=== PATIENT | male | born 1990 | race African-American/Black ===

== ENCOUNTER 2017-05-28 14:50 | Emergency (ER) | payer SELFPAY ==
[~2017-05-28] VITALS: Ht 175.3 cm; Wt 180.0 kg
[2017-05-28 15:20] VITALS: BP 161/82
== END 2017-05-28 19:15 | disposition home or self-care (01) ==
LOC: ER 15:54
DX: H66.92 Otitis media, unspecified, left ear (principal); H60.92 Unspecified otitis externa, left ear; J45.909 Unspecified asthma, uncomplicated; E66.01 Morbid (severe) obesity due to excess calories; Z68.43 Body mass index [BMI] 50.0-59.9, adult; Z96.649 Presence of unspecified artificial hip joint
CPT/HCPCS: 99283

== ENCOUNTER 2018-01-15 22:06 | Emergency (ER) | payer MEDICAID ==
[~2018-01-15] VITALS: Ht 188 cm; Wt 148.0 kg
[2018-01-15] MEDS ORDERED: HYDROCODONE/ACETAMINOPHEN 5/325MG TABLET PO ONE (23:00)
[2018-01-15] MEDS ORDERED: ONDANSETRON 4MG ODT PO ONE (23:00)
[2018-01-15] MEDS ORDERED: KETOROLAC 60MG/2ML VIAL IM ONE (23:00)
[2018-01-15 23:55] LABS: BASOPHILS % 0.4 % (0.0-2.0); EOSINOPHILS % 2.1 % (0.0-5.0); HEMATOCRIT. 40.4 % (42.0-52.0); HEMOGLOBIN. 13.2 g/dL (14.0-18.0); LYMPHOCYTES % 51.6 % (20.0-50.0); MEAN CORPUSCULAR HEMOGLOBIN 30.3 pg (28.0-32.0); MEAN CORPUSCULAR VOLUME 92.6 fL (80.0-94.0); MEAN PLATELET VOLUME 9.9 fl (7.4-10.4); MONOCYTES % 11.3 % (2.0-8.0); NEUTROPHILS % 34.6 % (40.0-76.0); PLATELET 187 x1000/uL (130-400); RED BLOOD CELL COUNT 4.37 mill/uL (4.7-6.1); RED CELL DISTRIBUTION WIDTH 13.9 % (11.6-14.6)
[2018-01-16 00:02] LABS: CHLORIDE 103 mEq/L (98-107)
[2018-01-16 02:33] VITALS: BP 130/62
== END 2018-01-16 02:35 | disposition home or self-care (01) ==
LOC: ER 22:06
DX: R07.89 Other chest pain (principal); I10 Essential (primary) hypertension; E66.01 Morbid (severe) obesity due to excess calories; R73.9 Hyperglycemia, unspecified; E83.51 Hypocalcemia; D64.9 Anemia, unspecified; J45.909 Unspecified asthma, uncomplicated; Z68.41 Body mass index [BMI] 40.0-44.9, adult; Z96.649 Presence of unspecified artificial hip joint; V43.62XA Car passenger injured in collision with other type car in traffic accident, initial encounter; Y93.89 Activity, other specified; Y92.488 Other paved roadways as the place of occurrence of the external cause
CPT/HCPCS: 36415; 71045; 80048; 84484; 85025; 93005; 96372; 99285; J1885; Q0162; Z7610

== ENCOUNTER 2018-10-14 16:13 | Emergency (ER) | payer MEDICAID ==
[~2018-10-14] VITALS: Ht 175.3 cm; Wt 180.0 kg
[2018-10-14] MEDS ORDERED: ALBU05 IH (16:32)
[2018-10-14 21:28] LABS: BASOPHILS % 0.3 % (0.0-2.0); EOSINOPHILS % 1.5 % (0.0-5.0); HEMATOCRIT. 39.4 % (42.0-52.0); HEMOGLOBIN. 12.8 g/dL (14.0-18.0); LYMPHOCYTES % 48.1 % (20.0-50.0); MEAN CORPUSCULAR VOLUME 95.2 fL (80.0-94.0); MEAN PLATELET VOLUME 9.4 fl (7.4-10.4); NEUTROPHILS % 42.1 % (40.0-76.0); PLATELET 198 x1000/uL (130-400); RED BLOOD CELL COUNT 4.14 mill/uL (4.7-6.1); RED CELL DISTRIBUTION WIDTH 13.5 % (11.6-14.6)
[2018-10-14 21:30] LABS: CHLORIDE 110 mEq/L (98-107)
[2018-10-14 22:20] VITALS: BP 122/74
== END 2018-10-14 23:32 | disposition home or self-care (01) ==
LOC: ER 16:44
DX: B35.1 Tinea unguium (principal); J45.909 Unspecified asthma, uncomplicated; I10 Essential (primary) hypertension; Z79.899 Other long term (current) drug therapy
CPT/HCPCS: 36415; 71045; 84484; 93005; 99284

== ENCOUNTER 2019-04-23 14:52 | Emergency (ER) | payer MEDICAID ==
[~2019-04-23] VITALS: Ht 175.3 cm; Wt 185.0 kg
[~2019-04-23 14:52] MED LIST: ALBU05 IH
[2019-04-23] MEDS ORDERED: KETOROLAC 30MG/ML VIAL IM ONE (17:45)
[2019-04-23] MEDS ORDERED: AMOXICILLIN/POTASSIUM CLAVULANATE 875/125MG TAB PO ONE (17:45)
[2019-04-23 18:35] VITALS: BP 145/81
== END 2019-04-23 18:35 | disposition home or self-care (01) ==
LOC: ER 14:52
DX: K02.9 Dental caries, unspecified (principal); I10 Essential (primary) hypertension
CPT/HCPCS: 96372; 99283; J1885; Z7610

== ENCOUNTER 2019-06-10 02:01 | Emergency (ER) | payer MEDICAID ==
[~2019-06-10] VITALS: Ht 175.3 cm; Wt 186.0 kg
[2019-06-10 02:52] VITALS: BP 158/76
== END 2019-06-10 05:56 | disposition left against medical advice (07) ==
LOC: ER 02:01
DX: R07.9 Chest pain, unspecified (principal); M79.89 Other specified soft tissue disorders; Z53.21 Procedure and treatment not carried out due to patient leaving prior to being seen by health care provider
CPT/HCPCS: 93005

== ENCOUNTER 2019-06-27 08:54 | Emergency (ER) | payer MEDICAID ==
[~2019-06-27] VITALS: Ht 175.3 cm; Wt 187.0 kg
[2019-06-27] MEDS ORDERED: OXYCODONE HCL/ACETAMINOPHEN 5/325MG TABLET PO ONE (10:45)
[2019-06-27 11:33] LABS: BASOPHILS % 0.5 % (0.0-2.0); EOSINOPHILS % 2.6 % (0.0-5.0); HEMATOCRIT. 40.4 % (42.0-52.0); HEMOGLOBIN. 13.4 g/dL (14.0-18.0); LYMPHOCYTES % 41.8 % (20.0-50.0); MEAN CORPUSCULAR HEMOGLOBIN 31.2 pg (28.0-32.0); MEAN CORPUSCULAR VOLUME 94.2 fL (80.0-94.0); MEAN PLATELET VOLUME 9.1 fl (7.4-10.4); MONOCYTES % 9.4 % (2.0-8.0); NEUTROPHILS % 45.7 % (40.0-76.0); PLATELET 202 x1000/uL (130-400); RED BLOOD CELL COUNT 4.28 mill/uL (4.7-6.1); RED CELL DISTRIBUTION WIDTH 13.3 % (11.6-14.6)
[2019-06-27 11:37] LABS: CHLORIDE 106 mEq/L (98-107)
[2019-06-27 12:02] VITALS: BP 130/78
== END 2019-06-27 12:04 | disposition home or self-care (01) ==
LOC: ER 08:54
DX: S20.211A Contusion of right front wall of thorax, initial encounter (principal); M25.551 Pain in right hip; W01.0XXA Fall on same level from slipping, tripping and stumbling without subsequent striking against object, initial encounter; Y93.89 Activity, other specified; Y92.89 Other specified places as the place of occurrence of the external cause
CPT/HCPCS: 36415; 71101; 73502; 80053; 84484; 85025; 93005; 99284; Z7610

== ENCOUNTER 2020-11-12 11:32 | Emergency (ER) | payer MEDICAID ==
[~2020-11-12] VITALS: Ht 175.3 cm; Wt 223.0 kg
[2020-11-12] MEDS ORDERED: HYDROCODONE/APAP 7.5/325MG 1 TAB TABLET PO ONE (11:45)
[2020-11-12] MEDS ORDERED: AMOX-494 MT ×2 (11:47→12:37)
[2020-11-12] MEDS ORDERED: IBUP-2030 MT (11:47)
[2020-11-12] MEDS ORDERED: HYDR-4348 MT (11:47)
[2020-11-12 12:02] VITALS: BP 168/79
== END 2020-11-12 12:10 | disposition home or self-care (01) ==
LOC: ER 11:45
DX: K04.7 Periapical abscess without sinus (principal); I50.9 Heart failure, unspecified; J45.909 Unspecified asthma, uncomplicated; F12.10 Cannabis abuse, uncomplicated; Z98.890 Other specified postprocedural states; Z79.899 Other long term (current) drug therapy
CPT/HCPCS: 99283; Z7610

== ENCOUNTER 2020-11-28 10:30 | Emergency (ER) | payer MEDICAID ==
[~2020-11-28] VITALS: Ht 175.3 cm; Wt 186.0 kg
[~2020-11-28 10:30] MED LIST changes: +AMOX-494 MT; +HYDR-4348 MT; +IBUP-2030 MT
[2020-11-28] MEDS ORDERED: FUROSEMIDE 40MG/4ML VIAL IV ONE (11:15)
[2020-11-28] MEDS ORDERED: NITROGLYCERIN OINT 1GM/INCH UDPKT TD ONE (11:15)
[2020-11-28] MEDS ORDERED: ASPIRIN 81MG TABLET PO ONE (11:15)
[2020-11-28 12:27] LABS: BASOPHILS % 0.5 % (0.0-2.0); EOSINOPHILS % 3.6 % (0.0-5.0); HEMATOCRIT. 37.1 % (42.0-52.0); HEMOGLOBIN. 11.8 g/dL (14.0-18.0); LYMPHOCYTES % 35.3 % (20.0-50.0); MEAN CORPUSCULAR HEMOGLOBIN 27.4 pg (28.0-32.0); MEAN PLATELET VOLUME 9.7 fl (7.4-10.4); MONOCYTES % 12.6 % (2.0-8.0); PLATELET 179 x1000/uL (130-400); RED BLOOD CELL COUNT 4.31 mill/uL (4.7-6.1); RED CELL DISTRIBUTION WIDTH 17.8 % (11.6-14.6)
[2020-11-28 12:33] LABS: CHLORIDE 104 mEq/L (98-107)
[2020-11-28 15:51] VITALS: BP 159/83
[2020-11-28] MEDS ORDERED: FURO-151 MT (15:57)
[2020-11-28] MEDS ORDERED: CLONIDINE 0.2MG TABLET PO ONE (16:00)
== END 2020-11-28 16:22 | disposition left against medical advice (07) ==
LOC: ER 10:30 → EDBEDREQTM 14:55 → EDBEDREQ 14:55 → CANRESERV 15:40 → ENRESERV 15:40 → ER 16:22 → CANBEDREQ 21:22
DX: I11.0 Hypertensive heart disease with heart failure (principal); I50.9 Heart failure, unspecified; J45.909 Unspecified asthma, uncomplicated; J98.11 Atelectasis; D64.9 Anemia, unspecified; E66.01 Morbid (severe) obesity due to excess calories; Z96.649 Presence of unspecified artificial hip joint; Z68.44 Body mass index [BMI] 60.0-69.9, adult; F12.90 Cannabis use, unspecified, uncomplicated
CPT/HCPCS: 36415; 71045; 80053; 83880; 84484; 85025; 93005; 93970; 96374; 99285; J1940; Z7610

== ENCOUNTER 2021-07-05 22:39 | Inpatient (IN) | payer MEDICAID ==
[~2021-07-05] VITALS: Ht 200.7 cm; Wt 189.6 kg
[~2021-07-05 22:39] MED LIST changes: +FURO-151 MT
[2021-07-06 01:49] LABS: CLARITY URINE CLEAR (CLEAR); COLOR URINE DK YELLOW (YELLOW); KETONES URINE NEGATIVE (NEGATIVE); LEUKOCYTE ESTERASE URINE NEGATIVE (NEGATIVE); NITRITE URINE NEGATIVE (NEGATIVE); OCCULT BLOOD URINE NEGATIVE (NEGATIVE); PH URINE 6.5 (4.5-8.0); PROTEIN URINE 2+ (NEGATIVE); SPECIFIC GRAVITY URINE 1.015 (1.005-1.030)
[2021-07-06 01:51] LABS: HEMATOCRIT. 44.9 % (42.0-52.0); HEMOGLOBIN. 13.9 g/dL (14.0-18.0); MEAN CORPUSCULAR HEMOGLOBIN 25.9 pg (28.0-32.0); MEAN CORPUSCULAR VOLUME 83.8 fL (80.0-94.0); MEAN PLATELET VOLUME 10.1 fl (7.4-10.4); PLATELET 143 x1000/uL (130-400); RED BLOOD CELL COUNT 5.36 mill/uL (4.7-6.1); RED CELL DISTRIBUTION WIDTH 18.4 % (11.6-14.6)
[2021-07-06 01:53] LABS: CHLORIDE 97 mEq/L (98-107)
[2021-07-06] MEDS ORDERED: FUROSEMIDE 40MG/4ML VIAL IVP NR (03:00)
[2021-07-06 03:03] LABS: PLATELET ESTIMATE NORMAL
[2021-07-06] MEDS ORDERED: CLONIDINE 0.1MG TABLET PO PRN (06:30)
[2021-07-06] MEDS ORDERED: HYDROCODONE/ACETAMINOPHEN 5/325MG TABLET PO PRN (06:30)
[2021-07-06] MEDS ORDERED: ONDANSETRON HCL 4MG/2ML INJ IV PRN (06:30)
[2021-07-06] MEDS ORDERED: GUAIFENESIN 200MG/10ML SUGAR FREE UDC PO PRN (06:30)
[2021-07-06] MEDS ORDERED: NALOXONE HCL 0.4MG/ML VIAL IV PRN (08:30)
[2021-07-06] MEDS ORDERED: LISINOPRIL 10MG TABLET PO SCH (09:00)
[2021-07-06] MEDS ORDERED: DOCUSATE SODIUM 100MG CAPSULE PO PRN (09:00)
[2021-07-06] MEDS: AMLODIPINE 10MG TABLET PO SCH (09:16)
[2021-07-06] MEDS: FUROSEMIDE 40MG/4ML VIAL IV SCH (09:16)
[2021-07-06] MEDS: ENOXAPARIN 40MG/0.4ML SYR SUBCUT SCH ×2 (09:21→21:15)
[2021-07-06] MEDS: DEXAMETHASONE 4MG/ML 1ML VIAL IV SCH ×2 (10:03→23:37)
[2021-07-07 08:06] LABS: BASOPHILS % 0.6 % (0.0-2.0); HEMOGLOBIN. 13.9 g/dL (14.0-18.0); LYMPHOCYTES % 28.7 % (20.0-50.0); MEAN CORPUSCULAR HEMOGLOBIN 26.1 pg (28.0-32.0); MEAN CORPUSCULAR VOLUME 84.4 fL (80.0-94.0); MEAN PLATELET VOLUME 10.1 fl (7.4-10.4); NEUTROPHILS % 63.7 % (40.0-76.0); PLATELET 139 x1000/uL (130-400); RED BLOOD CELL COUNT 5.34 mill/uL (4.7-6.1); RED CELL DISTRIBUTION WIDTH 18.3 % (11.6-14.6)
[2021-07-07 08:11] LABS: CHLORIDE 96 mEq/L (98-107)
[2021-07-07 08:19] LABS: LDL CHOLESTEROL 89 mg/dL (5-100)
[2021-07-07 08:20] LABS: HDL CHOLESTEROL 28 mg/dL (40-59)
[2021-07-07] MEDS: FUROSEMIDE 40MG/4ML VIAL IV SCH (09:59)
[2021-07-07] MEDS: ENOXAPARIN 40MG/0.4ML SYR SUBCUT SCH ×2 (10:00→21:59)
[2021-07-07] MEDS: AMLODIPINE 10MG TABLET PO SCH (10:12)
[2021-07-07] MEDS: DEXAMETHASONE 4MG/ML 1ML VIAL IV SCH (10:13)
[2021-07-07] MEDS: DEXAMETHASONE 10 MG/ML VIAL IV SCH (21:58)
[2021-07-08] MEDS ORDERED: HYDR-4348 MT (02:56)
[2021-07-08] MEDS ORDERED: POTA20TA82 MT (02:57)
[2021-07-08 03:01] VITALS: BP 148/77
[2021-07-08 03:26] VITALS: BP 148/77
[2021-07-08 07:36] LABS: BASOPHILS % 0.1 % (0.0-2.0); CHLORIDE 96 mEq/L (98-107); HEMATOCRIT. 44.5 % (42.0-52.0); HEMOGLOBIN. 13.2 g/dL (14.0-18.0); LYMPHOCYTES % 23.1 % (20.0-50.0); MEAN CORPUSCULAR HEMOGLOBIN 25.3 pg (28.0-32.0); MEAN CORPUSCULAR VOLUME 85.1 fL (80.0-94.0); MEAN PLATELET VOLUME 10.6 fl (7.4-10.4); MONOCYTES % 9.2 % (2.0-8.0); NEUTROPHILS % 67.6 % (40.0-76.0); PLATELET 166 x1000/uL (130-400); RED BLOOD CELL COUNT 5.23 mill/uL (4.7-6.1)
[2021-07-08 08:00] VITALS: BP 131/61
[2021-07-08] MEDS: FUROSEMIDE 40MG/4ML VIAL IV SCH (09:53)
[2021-07-08] MEDS: DEXAMETHASONE 10 MG/ML VIAL IV SCH ×2 (09:53→21:20)
[2021-07-08] MEDS: AMLODIPINE 10MG TABLET PO SCH (09:53)
[2021-07-08] MEDS: LISINOPRIL 40MG TABLET PO SCH (09:53)
[2021-07-08] MEDS: ENOXAPARIN 40MG/0.4ML SYR SUBCUT SCH ×2 (09:55→21:20)
[2021-07-08 12:00] VITALS: BP 115/66
[2021-07-08 12:29] LABS: BG BASE EXCESS 10.3 mmol/L (-2.0-2.0); BG CARBOXYHEMOGLOBIN 0.4 % (0.5-1.5); BG DEOXYHEMOGLOBIN 2.9 % (0.0-5.0); BG HCO3 ACT 39.4 mmol/L (22.0-26.0); BG METHEMOGLOBIN 0.2 % (0.0-1.5); BG OXYGEN SATURATION 97.1 % (92.0-98.5); BG OXYHEMOGLOBIN 96.5 % (94.0-97.0); BG PH 7.344 (7.350-7.450); BG PO2 100.1 mmHg (75.0-100.0); BG SAMPLE SITE RIGHT RADIAL; BG TOTAL HEMOGLOBIN 14.7 g/dL (12.0-18.0); BG VENT MODE MASK - BIPAP
[2021-07-08 16:00] VITALS: BP 146/87
[2021-07-08 20:00] VITALS: BP 139/71
[2021-07-09] VITALS: BP 140/76
[2021-07-09 04:00] VITALS: BP 141/71
[2021-07-09 08:00] VITALS: BP 149/77
[2021-07-09] MEDS: ENOXAPARIN 40MG/0.4ML SYR SUBCUT SCH ×2 (09:55→20:33)
[2021-07-09] MEDS: FUROSEMIDE 40MG/4ML VIAL IV SCH (09:55)
[2021-07-09] MEDS: DEXAMETHASONE 10 MG/ML VIAL IV SCH ×2 (09:55→20:33)
[2021-07-09] MEDS: AMLODIPINE 10MG TABLET PO SCH (09:55)
[2021-07-09] MEDS: LISINOPRIL 40MG TABLET PO SCH (09:55)
[2021-07-09 12:00] VITALS: BP 131/86
[2021-07-09 16:00] VITALS: BP 128/61
[2021-07-09 20:00] VITALS: BP 137/79
[2021-07-09] MEDS: ALBUTEROL 6.7GM HFA INHALER ORI PRN (22:10)
[2021-07-10] VITALS: BP 129/76
[2021-07-10 04:00] VITALS: BP 143/92
[2021-07-10 08:00] VITALS: BP 160/85
[2021-07-10] MEDS: LISINOPRIL 40MG TABLET PO SCH (09:40)
[2021-07-10] MEDS: AMLODIPINE 10MG TABLET PO SCH (09:40)
[2021-07-10] MEDS: DEXAMETHASONE 10 MG/ML VIAL IV SCH ×2 (09:40→21:17)
[2021-07-10] MEDS: GUAIFENESIN-DM 200MG-20MG/10ML UDC PO PRN (09:41)
[2021-07-10] MEDS: ENOXAPARIN 40MG/0.4ML SYR SUBCUT SCH ×2 (09:41→21:17)
[2021-07-10] MEDS: FUROSEMIDE 40MG/4ML VIAL IV SCH (09:44)
[2021-07-10 12:00] VITALS: BP 155/101
[2021-07-10 16:00] VITALS: BP 158/92
[2021-07-10 20:00] VITALS: BP 138/71
[2021-07-10 20:28] LABS: BASOPHILS % 0.2 % (0.0-2.0); EOSINOPHILS % 0.1 % (0.0-5.0); HEMATOCRIT. 47.6 % (42.0-52.0); HEMOGLOBIN. 14.2 g/dL (14.0-18.0); LYMPHOCYTES % 19.4 % (20.0-50.0); MEAN CORPUSCULAR HEMOGLOBIN 25.2 pg (28.0-32.0); MEAN CORPUSCULAR VOLUME 84.3 fL (80.0-94.0); MEAN PLATELET VOLUME 10.1 fl (7.4-10.4); MONOCYTES % 14.8 % (2.0-8.0); NEUTROPHILS % 65.5 % (40.0-76.0); PLATELET 188 x1000/uL (130-400); RED BLOOD CELL COUNT 5.64 mill/uL (4.7-6.1); RED CELL DISTRIBUTION WIDTH 18.5 % (11.6-14.6)
[2021-07-10 20:45] LABS: CHLORIDE 99 mEq/L (98-107)
[2021-07-11] VITALS: BP 144/83
[2021-07-11 04:00] VITALS: BP 137/68
[2021-07-11 08:00] VITALS: BP 170/111
[2021-07-11] MEDS: AMLODIPINE 10MG TABLET PO SCH (09:05)
[2021-07-11] MEDS: LISINOPRIL 40MG TABLET PO SCH (09:06)
[2021-07-11] MEDS: DEXAMETHASONE 10 MG/ML VIAL IV SCH ×2 (09:07→20:24)
[2021-07-11] MEDS: ENOXAPARIN 40MG/0.4ML SYR SUBCUT SCH ×2 (09:07→20:25)
[2021-07-11] MEDS: GUAIFENESIN-DM 200MG-20MG/10ML UDC PO PRN (09:08)
[2021-07-11 12:00] VITALS: BP 161/87
[2021-07-11 16:00] VITALS: BP 129/58
[2021-07-11 20:00] VITALS: BP 128/58
[2021-07-11] MEDS: ALBUTEROL 6.7GM HFA INHALER ORI PRN (23:48)
[2021-07-12] VITALS: BP 135/64
[2021-07-12 04:00] VITALS: BP 144/66
[2021-07-12 08:00] VITALS: BP 136/65
[2021-07-12] MEDS: LISINOPRIL 40MG TABLET PO SCH (09:53)
[2021-07-12] MEDS: AMLODIPINE 10MG TABLET PO SCH (09:53)
[2021-07-12] MEDS: ENOXAPARIN 40MG/0.4ML SYR SUBCUT SCH ×2 (09:53→21:46)
[2021-07-12] MEDS: DEXAMETHASONE 10 MG/ML VIAL IV SCH ×2 (10:28→21:46)
[2021-07-12 12:00] VITALS: BP 100/64
[2021-07-12 16:00] VITALS: BP 131/79
[2021-07-12 20:00] VITALS: BP 123/87
[2021-07-13 08:00] VITALS: BP 155/54
[2021-07-13] MEDS: LISINOPRIL 40MG TABLET PO SCH (08:59)
[2021-07-13] MEDS: AMLODIPINE 10MG TABLET PO SCH (08:59)
[2021-07-13] MEDS: DEXAMETHASONE 10 MG/ML VIAL IV SCH (08:59)
[2021-07-13] MEDS: ENOXAPARIN 40MG/0.4ML SYR SUBCUT SCH (08:59)
[2021-07-13 12:00] VITALS: BP 141/66
[2021-07-13] MEDS ORDERED: FUROSEMIDE 40MG TABLET PO SCH (12:30)
[2021-07-13 14:31] VITALS: BP 141/66
[2021-07-13 16:00] VITALS: BP 106/80
== END 2021-07-13 18:30 | disposition home or self-care (01) | DRG 720 ==
LOC: ER 22:39 → MICUSO 07-06 16:01 → 7WST 07-08 01:28 → 5WST 07-12 23:11
PROVIDERS: ADMIT Hospitalist; ATTEND Hospitalist
PROC: 5A09557 Assistance with Respiratory Ventilation, Greater than 96 Consecutive Hours, Continuous Positive Airway Pressure (ICD-10-PCS; principal; 2021-07-06)
DX: A41.89 Other specified sepsis (principal); J96.01 Acute respiratory failure with hypoxia; J12.82 Pneumonia due to coronavirus disease 2019; I50.33 Acute on chronic diastolic (congestive) heart failure; I27.81 Cor pulmonale (chronic); E66.2 Morbid (severe) obesity with alveolar hypoventilation; U07.1 COVID-19; J45.909 Unspecified asthma, uncomplicated; F32.A Depression, unspecified; Z96.641 Presence of right artificial hip joint; Z68.42 Body mass index [BMI] 45.0-49.9, adult
CPT/HCPCS: 36415; 36600; 71045; 80053; 80061; 81003; 82375; 82728; 82805; 83880; 84145; 84484; 85025; 85379; 86140; 87426; 93005; 93306; 93970; 94660; 99285; J1100; J1650; J1940

== ENCOUNTER 2021-10-02 16:09 | Inpatient (IN) | payer MEDICAID ==
[~2021-10-02] VITALS: Ht 175.3 cm; Wt 186.0 kg
[~2021-10-02 16:09] MED LIST changes: -AMOX-494 MT; -IBUP-2030 MT; +POTA-79 PO
[2021-10-02] MEDS ORDERED: IPRATROPIUM BROMIDE (0.02%) 0.5MG/2.5ML NEB HHN STA (16:38)
[2021-10-02] MEDS ORDERED: ALBUTEROL (0.083%) 2.5MG/3ML NEB HHN STA (16:38)
[2021-10-02] MEDS ORDERED: METHYLPREDNISOLONE SOD SUCC 125 MG/2 ML VIAL IV STA (16:38)
[2021-10-02 17:22] LABS: BASOPHILS % 0.6 % (0.0-2.0); EOSINOPHILS % 0.4 % (0.0-5.0); HEMATOCRIT. 42.1 % (42.0-52.0); HEMOGLOBIN. 13.1 g/dL (14.0-18.0); LYMPHOCYTES % 35.8 % (20.0-50.0); MEAN CORPUSCULAR HEMOGLOBIN 28.4 pg (28.0-32.0); MEAN CORPUSCULAR VOLUME 90.9 fL (80.0-94.0); MEAN PLATELET VOLUME 9.4 fl (7.4-10.4); MONOCYTES % 10.1 % (2.0-8.0); NEUTROPHILS % 53.1 % (40.0-76.0); PLATELET 182 x1000/uL (130-400); RED BLOOD CELL COUNT 4.63 mill/uL (4.7-6.1); RED CELL DISTRIBUTION WIDTH 19.8 % (11.6-14.6)
[2021-10-02 17:28] LABS: CHLORIDE 100 mEq/L (98-107)
[2021-10-02] MEDS ORDERED: FUROSEMIDE 20MG/2ML VIAL IVP NR ×2 (17:45→18:44)
[2021-10-02] MEDS ORDERED: METHYLPREDNISOLONE SOD SUCC 125 MG/2 ML VIAL IV NR (18:15)
[2021-10-02] MEDS ORDERED: ONDANSETRON HCL 4MG/2ML INJ IV PRN (19:15)
[2021-10-02] MEDS ORDERED: DOCUSATE SODIUM 100MG CAPSULE PO PRN (19:15)
[2021-10-02] MEDS ORDERED: MAGNESIUM/ALUMINUM HYDROXIDE/SIMETHICONE 30ML UDC PO PRN (19:15)
[2021-10-02] MEDS ORDERED: KETOROLAC 15MG/ML VIAL IV PRN (19:15)
[2021-10-02] MEDS ORDERED: ACETAMINOPHEN 325MG TABLET PO PRN ×2 (19:15)
[2021-10-02] MEDS ORDERED: IPRATROPIUM/ALBUTEROL 0.5-3(2.5)MG/3ML NEB NEB PRN (19:15)
[2021-10-02] MEDS ORDERED: GUAIFENESIN 200MG/10ML SUGAR FREE UDC PO PRN (19:15)
[2021-10-02] MEDS ORDERED: NITROGLYCERIN 0.4MG TABLET SL SL PRN (19:15)
[2021-10-02 19:27] LABS: ETHANOL BLOOD < 10 mg/dL
[2021-10-02 19:29] LABS: TOTAL IRON BINDING CAPACITY 354 ug/dL (250-450)
[2021-10-02 19:30] LABS: LDL CHOLESTEROL 93 mg/dL (5-100)
[2021-10-02 19:31] LABS: HDL CHOLESTEROL 41 mg/dL (40-59)
[2021-10-02 19:32] LABS: T4 FREE 0.96 ng/dL (0.76-1.46)
[2021-10-02 19:47] LABS: FOLIC ACID (FOLATE) SERUM 15.6 ng/mL (>5.38)
[2021-10-02] MEDS ORDERED: ZOLPIDEM TARTRATE 5MG TABLET PO PRN (21:00)
[2021-10-02] MEDS: ASCORBIC ACID 500 MG TABLET PO SCH (22:11)
[2021-10-02] MEDS: LISINOPRIL 5MG TABLET PO SCH (22:11)
[2021-10-02] MEDS: FAMOTIDINE 20MG TABLET PO SCH (22:11)
[2021-10-02] MEDS: SPIRONOLACTONE 25MG TABLET PO SCH (22:11)
[2021-10-02] MEDS: ENOXAPARIN 40MG/0.4ML SYR SUBCUT SCH (22:16)
[2021-10-02] MEDS: FUROSEMIDE 40MG/4ML VIAL IVP SCH (22:18)
[2021-10-02 23:31] LABS: CREATINE KINASE MB FRACTION 1.3 ng/mL (0.5-3.6)
[2021-10-03 05:58] LABS: BASOPHILS % 0.1 % (0.0-2.0); EOSINOPHILS % 0.4 % (0.0-5.0); HEMATOCRIT. 44.5 % (42.0-52.0); HEMOGLOBIN. 14.1 g/dL (14.0-18.0); LYMPHOCYTES % 17.7 % (20.0-50.0); MEAN CORPUSCULAR HEMOGLOBIN 29.2 pg (28.0-32.0); MEAN CORPUSCULAR VOLUME 91.8 fL (80.0-94.0); MEAN PLATELET VOLUME 10.2 fl (7.4-10.4); MONOCYTES % 1.3 % (2.0-8.0); NEUTROPHILS % 80.5 % (40.0-76.0); PLATELET 218 x1000/uL (130-400); RED BLOOD CELL COUNT 4.84 mill/uL (4.7-6.1); RED CELL DISTRIBUTION WIDTH 19.5 % (11.6-14.6)
[2021-10-03 06:10] LABS: CHLORIDE 98 mEq/L (98-107)
[2021-10-03 06:15] LABS: PHOSPHORUS 5.1 mg/dL (2.5-4.9)
[2021-10-03 06:18] LABS: CREATINE KINASE 199 IU/L (39-308)
[2021-10-03 06:21] LABS: CREATINE KINASE MB FRACTION 1.6 ng/mL (0.5-3.6)
[2021-10-03] MEDS: ENOXAPARIN 40MG/0.4ML SYR SUBCUT SCH ×2 (09:51→21:33)
[2021-10-03 12:03] VITALS: BP 164/114
[2021-10-03] MEDS: IPRATROPIUM/ALBUTEROL 0.5-3(2.5)MG/3ML NEB HHN SCH ×4 (12:56→23:48)
[2021-10-03] MEDS: BUDESONIDE 0.5MG/2ML NEB HHN SCH ×2 (12:56→19:54)
[2021-10-03] MEDS: LISINOPRIL 5MG TABLET PO SCH ×2 (13:00→21:34)
[2021-10-03] MEDS: SPIRONOLACTONE 25MG TABLET PO SCH ×2 (13:00→21:34)
[2021-10-03] MEDS: FAMOTIDINE 20MG TABLET PO SCH ×2 (13:28→21:34)
[2021-10-03] MEDS: ZINC SULFATE 220 MG ( 50 ) CAPSULE PO SCH (13:28)
[2021-10-03] MEDS: ASPIRIN 325MG EC TABLET PO SCH (13:28)
[2021-10-03] MEDS: ASCORBIC ACID 500 MG TABLET PO SCH ×2 (13:28→21:34)
[2021-10-03] MEDS: FUROSEMIDE 40MG/4ML VIAL IVP SCH ×2 (13:29→21:33)
[2021-10-03] MEDS: CHOLECALCIFEROL (D3) 1000 UNIT TABLET PO SCH (13:29)
[2021-10-03] MEDS: CLONIDINE 0.1MG TABLET PO PRN (13:32)
[2021-10-03 13:48] VITALS: BP 164/114
[2021-10-03 15:34] VITALS: BP 128/75
[2021-10-03] MEDS: CARVEDILOL 3.125 MG TABLET PO SCH (17:24)
[2021-10-03 20:00] VITALS: BP 139/86
[2021-10-03] MEDS: METHYLPREDNISOLONE SOD SUCC 40 MG/ML VIAL IV SCH (21:42)
[2021-10-04] VITALS: BP 142/87
[2021-10-04] MEDS: IPRATROPIUM/ALBUTEROL 0.5-3(2.5)MG/3ML NEB HHN SCH ×5 (03:44→20:56)
[2021-10-04 04:00] VITALS: BP 138/86
[2021-10-04] MEDS: METHYLPREDNISOLONE SOD SUCC 40 MG/ML VIAL IV SCH ×3 (06:23→21:40)
[2021-10-04] MEDS: CARVEDILOL 3.125 MG TABLET PO SCH ×2 (06:24→18:21)
[2021-10-04 08:15] VITALS: BP 115/54
[2021-10-04] MEDS: BUDESONIDE 0.5MG/2ML NEB HHN SCH ×2 (09:47→20:56)
[2021-10-04] MEDS: ENOXAPARIN 40MG/0.4ML SYR SUBCUT SCH ×2 (09:59→22:12)
[2021-10-04] MEDS: ASPIRIN 325MG EC TABLET PO SCH (10:00)
[2021-10-04] MEDS: LISINOPRIL 5MG TABLET PO SCH ×2 (10:00→21:41)
[2021-10-04] MEDS: ZINC SULFATE 220 MG ( 50 ) CAPSULE PO SCH (10:00)
[2021-10-04] MEDS: ASCORBIC ACID 500 MG TABLET PO SCH ×2 (10:00→21:41)
[2021-10-04] MEDS: FAMOTIDINE 20MG TABLET PO SCH ×2 (10:01→21:41)
[2021-10-04] MEDS: SPIRONOLACTONE 25MG TABLET PO SCH ×2 (10:04→21:41)
[2021-10-04] MEDS: CHOLECALCIFEROL (D3) 1000 UNIT TABLET PO SCH (10:09)
[2021-10-04] MEDS: FUROSEMIDE 40MG/4ML VIAL IVP SCH ×2 (10:09→21:40)
[2021-10-04 11:23] LABS: BG BASE EXCESS 7.9 mmol/L (-2.0-2.0); BG CARBOXYHEMOGLOBIN 0.6 % (0.5-1.5); BG DEOXYHEMOGLOBIN 10.4 % (0.0-5.0); BG FRACTION INSPIRED OXYGEN 32; BG HCO3 ACT 37.2 mmol/L (22.0-26.0); BG METHEMOGLOBIN 0.3 % (0.0-1.5); BG OXYGEN SATURATION 89.5 % (92.0-98.5); BG OXYHEMOGLOBIN 88.7 % (94.0-97.0); BG PCO2 74.7 mmHg (35.0-45.0); BG PH 7.315 (7.350-7.450); BG PO2 63.1 mmHg (75.0-100.0); BG SAMPLE SITE RIGHT RADIAL; BG TOTAL HEMOGLOBIN 14.9 g/dL (12.0-18.0); BG VENT MODE NASAL CANNULA
[2021-10-04 11:55] VITALS: BP 96/47
[2021-10-04 16:20] VITALS: BP 151/67
[2021-10-04 20:00] VITALS: BP 120/70
[2021-10-05] VITALS: BP 130/69
[2021-10-05] MEDS: IPRATROPIUM/ALBUTEROL 0.5-3(2.5)MG/3ML NEB HHN SCH ×6 (01:02→20:00)
[2021-10-05 04:00] VITALS: BP 154/98
[2021-10-05] MEDS: CARVEDILOL 3.125 MG TABLET PO SCH ×2 (06:00→17:22)
[2021-10-05] MEDS: METHYLPREDNISOLONE SOD SUCC 40 MG/ML VIAL IV SCH ×3 (06:19→21:13)
[2021-10-05 08:00] VITALS: BP 127/91
[2021-10-05] MEDS: ZINC SULFATE 220 MG ( 50 ) CAPSULE PO SCH (08:54)
[2021-10-05] MEDS: FUROSEMIDE 40MG/4ML VIAL IVP SCH ×2 (08:54→21:10)
[2021-10-05] MEDS: ENOXAPARIN 40MG/0.4ML SYR SUBCUT SCH ×2 (08:54→21:10)
[2021-10-05] MEDS: ASCORBIC ACID 500 MG TABLET PO SCH ×2 (08:54→21:13)
[2021-10-05] MEDS: CHOLECALCIFEROL (D3) 1000 UNIT TABLET PO SCH (08:55)
[2021-10-05] MEDS: FAMOTIDINE 20MG TABLET PO SCH ×2 (08:55→21:13)
[2021-10-05] MEDS: ASPIRIN 325MG EC TABLET PO SCH (08:55)
[2021-10-05] MEDS: LISINOPRIL 5MG TABLET PO SCH ×2 (08:55→21:13)
[2021-10-05] MEDS: SPIRONOLACTONE 25MG TABLET PO SCH ×2 (08:55→21:13)
[2021-10-05] MEDS: BUDESONIDE 0.5MG/2ML NEB HHN SCH ×2 (09:41→18:00)
[2021-10-05 12:00] VITALS: BP 136/80
[2021-10-05] MEDS ORDERED: METOLAZONE 10MG TABLET PO NR (12:00)
[2021-10-05] MEDS ORDERED: ALBUTEROL 6.7GM HFA INHALER ORI PRN ×2 (12:30→13:45)
[2021-10-05 13:28] LABS: BG BASE EXCESS 9.5 mmol/L (-2.0-2.0); BG CARBOXYHEMOGLOBIN 1.1 % (0.5-1.5); BG DEOXYHEMOGLOBIN 11.3 % (0.0-5.0); BG FRACTION INSPIRED OXYGEN 21; BG HCO3 ACT 35.6 mmol/L (22.0-26.0); BG METHEMOGLOBIN 0.3 % (0.0-1.5); BG OXYGEN SATURATION 88.5 % (92.0-98.5); BG OXYHEMOGLOBIN 87.3 % (94.0-97.0); BG PCO2 52.7 mmHg (35.0-45.0); BG PH 7.447 (7.350-7.450); BG PO2 54.8 mmHg (75.0-100.0); BG SAMPLE SITE RIGHT RADIAL; BG TOTAL HEMOGLOBIN 15.6 g/dL (12.0-18.0); BG VENT MODE ROOM AIR
[2021-10-05] MEDS ORDERED: METOLAZONE 5MG TABLET PO NR (14:00)
[2021-10-05 16:00] VITALS: BP 149/96
[2021-10-05] MEDS: CLONIDINE 0.1MG TABLET PO PRN (17:21)
[2021-10-05 20:00] VITALS: BP 147/86
[2021-10-06] VITALS: BP 133/82
[2021-10-06] MEDS: IPRATROPIUM/ALBUTEROL 0.5-3(2.5)MG/3ML NEB HHN SCH ×5 (00:24→16:50)
[2021-10-06 04:00] VITALS: BP 155/78
[2021-10-06] MEDS: METHYLPREDNISOLONE SOD SUCC 40 MG/ML VIAL IV SCH ×2 (05:54→14:42)
[2021-10-06] MEDS: CARVEDILOL 3.125 MG TABLET PO SCH (05:55)
[2021-10-06 06:04] VITALS: BP 155/80
[2021-10-06 08:00] VITALS: BP 170/105
[2021-10-06] MEDS: BUDESONIDE 0.5MG/2ML NEB HHN SCH (09:25)
[2021-10-06] MEDS: SPIRONOLACTONE 25MG TABLET PO SCH (09:58)
[2021-10-06] MEDS: ZINC SULFATE 220 MG ( 50 ) CAPSULE PO SCH (09:58)
[2021-10-06] MEDS: FUROSEMIDE 40MG/4ML VIAL IVP SCH (09:59)
[2021-10-06] MEDS: CHOLECALCIFEROL (D3) 1000 UNIT TABLET PO SCH (09:59)
[2021-10-06] MEDS: FAMOTIDINE 20MG TABLET PO SCH (09:59)
[2021-10-06] MEDS: LISINOPRIL 5MG TABLET PO SCH (09:59)
[2021-10-06] MEDS: ASCORBIC ACID 500 MG TABLET PO SCH (09:59)
[2021-10-06] MEDS: ASPIRIN 325MG EC TABLET PO SCH (09:59)
[2021-10-06] MEDS: ENOXAPARIN 40MG/0.4ML SYR SUBCUT SCH (10:03)
[2021-10-06] MEDS ORDERED: SPIR25TA MT (10:39)
[2021-10-06] MEDS ORDERED: LISI-186 PO (10:39)
[2021-10-06] MEDS ORDERED: FURO80TA87 MT (10:39)
[2021-10-06] MEDS ORDERED: ALBU05 IH (10:39)
[2021-10-06] MEDS ORDERED: COR3 PO (10:39)
[2021-10-06 12:00] VITALS: BP 144/92
[2021-10-06 15:43] LABS: BASOPHILS % 0.2 % (0.0-2.0); HEMATOCRIT. 49.8 % (42.0-52.0); HEMOGLOBIN. 15.7 g/dL (14.0-18.0); MEAN CORPUSCULAR HEMOGLOBIN 28.6 pg (28.0-32.0); MEAN CORPUSCULAR VOLUME 90.6 fL (80.0-94.0); MONOCYTES % 11.2 % (2.0-8.0); NEUTROPHILS % 74.6 % (40.0-76.0); PLATELET 215 x1000/uL (130-400); RED BLOOD CELL COUNT 5.49 mill/uL (4.7-6.1); RED CELL DISTRIBUTION WIDTH 18.8 % (11.6-14.6)
[2021-10-06 15:54] LABS: CHLORIDE 92 mEq/L (98-107)
[2021-10-06 16:01] LABS: PHOSPHORUS 4.1 mg/dL (2.5-4.9)
[2021-10-06 16:52] VITALS: BP 144/92
== END 2021-10-06 18:16 | disposition home or self-care (01) | DRG 194 ==
LOC: ER 16:09 → MICUSO 18:59 → EDBEDREQ 19:02 → 6WST 10-03 10:16
PROVIDERS: ADMIT Internal Medicine; ATTEND Internal Medicine
PROC: 5A09357 Assistance with Respiratory Ventilation, Less than 24 Consecutive Hours, Continuous Positive Airway Pressure (ICD-10-PCS; principal; 2021-10-03)
PROC: 5A09457 Assistance with Respiratory Ventilation, 24-96 Consecutive Hours, Continuous Positive Airway Pressure (ICD-10-PCS; 2021-10-05)
DX: I11.0 Hypertensive heart disease with heart failure (principal); J96.01 Acute respiratory failure with hypoxia; E44.0 Moderate protein-calorie malnutrition; I27.81 Cor pulmonale (chronic); E83.51 Hypocalcemia; Z68.44 Body mass index [BMI] 60.0-69.9, adult; I50.43 Acute on chronic combined systolic (congestive) and diastolic (congestive) heart failure; J84.9 Interstitial pulmonary disease, unspecified; E66.01 Morbid (severe) obesity due to excess calories; Z20.822 Contact with and (suspected) exposure to COVID-19; J45.909 Unspecified asthma, uncomplicated; Z96.649 Presence of unspecified artificial hip joint; G47.33 Obstructive sleep apnea (adult) (pediatric); F32.A Depression, unspecified; R74.01 Elevation of levels of liver transaminase levels; Z79.891 Long term (current) use of opiate analgesic; Z79.899 Other long term (current) drug therapy; Z86.16 Personal history of COVID-19
CPT/HCPCS: 36415; 36600; 71045; 80053; 80061; 80320; 82375; 82550; 82553; 82607; 82746; 82805; 83036; 83540; 83550; 83735; 83880; 84100; 84439; 84443; 84484; 85025; 87426; 93005; 93970; 94640; 94660; 97162; 97166; 99285; J1650; J1940; J2920; J2930; J7626; G0480

== ENCOUNTER 2023-02-04 12:40 | Emergency (ER) | payer MEDICAID ==
[~2023-02-04] VITALS: Ht 175.3 cm; Wt 186.0 kg
[~2023-02-04 12:40] MED LIST changes: +COR3 PO; -FURO-151 MT; -HYDR-4348 MT; +LISI-186 PO; -POTA-79 PO; +SULF1TAB48 MT
[2023-02-04 13:02] VITALS: BP 179/87; PULSE 63; RESP 16; TEMP 98.9; O2SAT 96
[2023-02-04 14:42] LABS: HEMATOCRIT. 39.5 % (42.0-52.0); HEMOGLOBIN. 13.2 g/dL (14.0-18.0); MEAN CORPUSCULAR HEMOGLOBIN 31.5 pg (28.0-32.0); MEAN CORPUSCULAR HGB CONC 33.3 g/dL (31.0-37.0); MEAN CORPUSCULAR VOLUME 94.6 fL (80.0-94.0); PLATELET 222 x1000/uL (130-400); RED BLOOD CELL COUNT 4.17 mill/uL (4.7-6.1); RED CELL DISTRIBUTION WIDTH 13.6 % (11.6-14.6); WHITE BLOOD COUNT 5.1 x1000/uL (4.5-11.0)
[2023-02-04 14:52] LABS: CHLORIDE 103 mEq/L (98-107); INDEX HEMOLYSI 1 (1-3); INDEX ICTERIC 1 (1-4); INDEX LIPEMIC 1 (1-3); POTASSIUM 3.5 mEq/L (3.5-5.1); SODIUM 138 mEq/L (136-145)
[2023-02-04 15:00] LABS: ALANINE AMINOTRANSFERASE 23 IU/L (13-61); ALBUMIN 3.4 g/dL (3.4-5.0); ASPARTATE AMINOTRANSFERASE 16 IU/L (15-37); BILIRUBIN TOTAL 0.3 mg/dL (0.1-1.0); CALCIUM 8.4 mg/dL (8.5-10.1); CARBON DIOXIDE 34 mEq/L (21-32); CREATININE 0.7 mg/dL (0.6-1.3); GLUCOSE 89 mg/dL (70-105); NT PRO B-TYPE NATRIURETIC PEP 54 pg/mL (5-125); PROTEIN TOTAL 8.2 g/dL (6.0-8.3); TROPONIN I HIGH SENSITIVITY 5 ng/L (<78); UREA NITROGEN BLOOD 7 mg/dL (7-21)
[2023-02-04 15:22] LABS: DIFFERENTIAL COMMENT 1
[2023-02-04] MEDS ORDERED: PHEN1CAP86 MT (15:53)
[2023-02-04 18:21] LABS: PLATELET ESTIMATE NORMAL
== END 2023-02-04 19:11 | disposition home or self-care (01) ==
LOC: ER 12:40
DX: B34.9 Viral infection, unspecified (principal); I10 Essential (primary) hypertension; I50.9 Heart failure, unspecified; Z98.890 Other specified postprocedural states
CPT/HCPCS: 36415; 71045; 80053; 83880; 84484; 85025; 93005; 99285